=== PATIENT | male | born 1955 | race Caucasian/White ===

== ENCOUNTER 2020-06-20 09:09 | Inpatient (IN) ==
[2020-06-20 09:35] LABS: Basophils % 0.6 % (0.0-0.8); Eosinophils # 0.3 10*3/uL (0.0-0.87); Eosinophils % 5.2 % (0.00-10.9); Hematocrit 40.2 VOL% (42.0-52.0); Immature Granulocytes % 0.6 %; Immature Granulocytes Absolute 0.03 #; Lymphocytes # 1.8 10*3/uL (1.4-4.0); Lymphocytes % 36.9 % (21.2-54.2); Mean Corpuscular HGB Conc 34.8 GM/DL (32-36); Mean Platelet Volume 9.2 FL (9.6-12.0); Monocytes % 7.5 % (1.7-12.7); Neutrophils % 49.2 % (38.7-73.9); Platelet Count 234 T/CUMM (130-400); Red Blood Count 4.57 MC/CUMM (3.8-5.5); Red Cell Distribution Width 11.4 % (9.3-17.3); White Blood Count 4.8 T/CUMM (4-12)
[2020-06-20 09:52] LABS: Albumin 3.6 G/DL (3.4-5.0); Bilirubin,Total 1.5 MG/DL (0.2-1.0); Calcium 8.6 MG/DL (8.5-10.1); Osmolality,Calculated 274.1 MOS/KG (273-304); Total Protein 6.9 G/DL (6.4-8.3)
[2020-06-20] MEDS ORDERED: SODIUM CHLORIDE 0.9% 1,000 ML IV STA (09:53)
[2020-06-20] MEDS ORDERED: ACETAMINOPHEN 325 MG TABLET PO PRN (10:46)
[2020-06-20] MEDS ORDERED: ONDANSETRON 4 MG/2 ML VIAL IV PRN (10:46)
[2020-06-20] MEDS ORDERED: GLUCAGON 1 MG VIAL IM PRN ×2 (10:46→13:00)
[2020-06-20] MEDS ORDERED: DEXTROSE 50% 25 GM/50 ML VIAL IV PRN ×2 (10:46→13:00)
[2020-06-20] MEDS ORDERED: ALBUTEROL 2.5 MG/3 ML NEB RESP TX PRN (12:56)
[2020-06-20] MEDS: SODIUM CHLORIDE 0.9% 1,000 ML IV SCH (12:57)
[2020-06-20 13:22] LABS: Thyroid Stimulating Hormone 3.43 uIU/ml (0.358-3.74)
[2020-06-20] MEDS ORDERED: MAGNESIUM SULF RIDER 4 GM in PREMIX 1 EACH IV ONE (13:43)
[2020-06-20] MEDS ORDERED: INSULIN REGULAR 100 UNIT/ML SUBCUT SCH (16:30)
[2020-06-20] MEDS: INSULIN LISPRO 100 UNIT/ML SUBCUT SCH (17:00)
[2020-06-20] MEDS: DOCUSATE SODIUM 100 MG CAPSULE PO SCH (20:27)
[2020-06-20] MEDS: gemfibroziL 600 MG TABLET PO SCH (20:27)
[2020-06-20] MEDS: APIXABAN 5 MG TABLET PO SCH (20:27)
[2020-06-21] MEDS: SODIUM CHLORIDE 0.9% 1,000 ML IV SCH ×5 (00:01→18:01)
[2020-06-21] MEDS: PANTOPRAZOLE 40 MG TABLET PO SCH (05:48)
[2020-06-21 06:07] LABS: Basophils % 0.7 % (0.0-0.8); Eosinophils # 0.3 10*3/uL (0.0-0.87); Eosinophils % 5.7 % (0.00-10.9); Hematocrit 35.2 VOL% (42.0-52.0); Hemoglobin 12.2 GM/DL (14.0-18.0); Immature Granulocytes % 0.2 %; Immature Granulocytes Absolute 0.01 #; Lymphocytes # 1.6 10*3/uL (1.4-4.0); Mean Corpuscular HGB Conc 34.7 GM/DL (32-36); Mean Corpuscular Volume 87.8 FL (87-102); Mean Platelet Volume 9.2 FL (9.6-12.0); Monocytes % 7.2 % (1.7-12.7); Neutrophils % 50.2 % (38.7-73.9); Platelet Count 195 T/CUMM (130-400); Red Blood Count 4.01 MC/CUMM (3.8-5.5); Red Cell Distribution Width 11.5 % (9.3-17.3); White Blood Count 4.6 T/CUMM (4-12)
[2020-06-21 06:35] LABS: Calcium 8.1 MG/DL (8.5-10.1); Osmolality,Calculated 276.8 MOS/KG (273-304)
[2020-06-21] MEDS: INSULIN LISPRO 100 UNIT/ML SUBCUT SCH ×2 (07:25→16:19)
[2020-06-21] MEDS: CELECOXIB 200 MG CAPSULE PO SCH (08:12)
[2020-06-21] MEDS: DOCUSATE SODIUM 100 MG CAPSULE PO SCH ×2 (08:13→20:32)
[2020-06-21] MEDS: APIXABAN 5 MG TABLET PO SCH ×2 (08:13→20:32)
[2020-06-21] MEDS: ATORVASTATIN 20 MG TABLET PO SCH (08:13)
[2020-06-21] MEDS: gemfibroziL 600 MG TABLET PO SCH ×2 (08:13→20:31)
[2020-06-21] MEDS ORDERED: PANTOPRAZOLE 40 MG TABLET PO SCH (09:00)
[2020-06-21] MEDS ORDERED: MAGNESIUM SULF RIDER 4 GM in PREMIX 1 EACH IV PRN (09:08)
[2020-06-21] MEDS ORDERED: MAGNESIUM SULF RIDER 2 GM in PREMIX 1 EACH IV PRN (09:08)
[2020-06-21] MEDS: lisinopriL 5 MG TABLET PO SCH (09:15)
[2020-06-21] MEDS: MAGNESIUM CHLORIDE 64 MG TABLET PO SCH (20:32)
[2020-06-22] MEDS: SODIUM CHLORIDE 0.9% 1,000 ML IV SCH (04:04)
[2020-06-22 05:35] LABS: Basophils % 0.8 % (0.0-0.8); Eosinophils # 0.3 10*3/uL (0.0-0.87); Eosinophils % 6.7 % (0.00-10.9); Hematocrit 36.3 VOL% (42.0-52.0); Hemoglobin 12.6 GM/DL (14.0-18.0); Immature Granulocytes % 0.8 %; Immature Granulocytes Absolute 0.03 #; Lymphocytes # 1.5 10*3/uL (1.4-4.0); Lymphocytes % 38.6 % (21.2-54.2); Mean Corpuscular HGB Conc 34.7 GM/DL (32-36); Mean Corpuscular Volume 88.5 FL (87-102); Mean Platelet Volume 9.3 FL (9.6-12.0); Monocytes % 6.7 % (1.7-12.7); Neutrophils % 46.4 % (38.7-73.9); Platelet Count 216 T/CUMM (130-400); Red Cell Distribution Width 11.5 % (9.3-17.3); White Blood Count 3.9 T/CUMM (4-12)
[2020-06-22 05:46] LABS: Calcium 7.9 MG/DL (8.5-10.1); Osmolality,Calculated 280.4 MOS/KG (273-304)
[2020-06-22] MEDS: PANTOPRAZOLE 40 MG TABLET PO SCH (06:24)
[2020-06-22 08:04] VITALS: BP 168/94
[2020-06-22] MEDS: lisinopriL 5 MG TABLET PO SCH (09:25)
[2020-06-22] MEDS: CELECOXIB 200 MG CAPSULE PO SCH (09:25)
[2020-06-22] MEDS: ATORVASTATIN 20 MG TABLET PO SCH (09:25)
[2020-06-22] MEDS: MAGNESIUM CHLORIDE 64 MG TABLET PO SCH (09:25)
[2020-06-22] MEDS: gemfibroziL 600 MG TABLET PO SCH (09:25)
[2020-06-22] MEDS: APIXABAN 5 MG TABLET PO SCH (09:25)
[2020-06-22] MEDS: DOCUSATE SODIUM 100 MG CAPSULE PO SCH (09:26)
[2020-06-22] MEDS: INSULIN LISPRO 100 UNIT/ML SUBCUT SCH (09:27)
== END 2020-06-22 10:00 | disposition home or self-care (01) | DRG 641 ==
LOC: N.ED 09:09 → N.EDINP 09:09 → N.TELES 12:34
PROVIDERS: ADMIT Internal Medicine; ATTEND Internal Medicine

== ENCOUNTER 2022-05-29 14:37 | Inpatient (IN) ==
[2022-05-29 16:01] LABS: Basophils % 0.5 % (0.0-0.8); Eosinophils # 0.1 10*3/uL (0.0-0.87); Eosinophils % 1.4 % (0.00-10.9); Hematocrit 42.8 VOL% (42.0-52.0); Hemoglobin 14.6 GM/DL (14.0-18.0); Immature Granulocytes % 0.5 %; Immature Granulocytes Absolute 0.03 #; Lymphocytes # 1.1 10*3/uL (1.4-4.0); Lymphocytes % 16.9 % (21.2-54.2); Mean Corpuscular HGB Conc 34.1 GM/DL (32-36); Mean Corpuscular Volume 87.7 FL (87-102); Mean Platelet Volume 9.2 FL (9.6-12.0); Monocytes # 0.6 10*3/uL (0.11-0.8); Monocytes % 8.7 % (1.7-12.7); Platelet Count 243 T/CUMM (130-400); Red Blood Count 4.88 MC/CUMM (3.8-5.5); White Blood Count 6.3 T/CUMM (4-12)
[2022-05-29] MEDS ORDERED: ZOLPIDEM 5 MG TABLET PO PRN ×2 (16:03→16:04)
[2022-05-29] MEDS ORDERED: ONDANSETRON 4 MG/2 ML VIAL IV PRN (16:05)
[2022-05-29] MEDS ORDERED: MEPERIDINE 25 MG/1 ML VIAL IV PRN (16:07)
[2022-05-29] MEDS ORDERED: MEPERIDINE 50 MG/1 ML VIAL IV PRN (16:07)
[2022-05-29 16:18] LABS: Albumin 3.7 G/DL (3.4-5.0); Bilirubin,Total 0.7 MG/DL (0.20-1.00); Osmolality,Calculated 280.8 MOS/KG (273-304); Potassium 4.3 MMOL/L (3.5-5.1); Total Protein 7.2 G/DL (6.4-8.2)
[2022-05-29] MEDS: metFORMIN 500 MG TABLET PO SCH (16:56)
[2022-05-29] MEDS: carvediloL 12.5 MG TABLET PO SCH (16:56)
[2022-05-29] MEDS: gemfibroziL 600 MG TABLET PO SCH (16:56)
[2022-05-29] MEDS: LACTATED RINGERS 1,000 ML IV SCH (18:15)
[2022-05-29] MEDS ORDERED: DIAZEPAM 5 MG TABLET PO ONE (20:04)
[2022-05-29] MEDS ORDERED: FAMOTIDINE 20 MG TABLET PO ONE (20:04)
[2022-05-29] MEDS ORDERED: SCOPOLAMINE 1.5 MG PATCH TRANSDERM ONE (20:04)
[2022-05-29] MEDS: ATORVASTATIN 20 MG TABLET PO SCH (20:26)
[2022-05-29] MEDS ORDERED: LACTATED RINGERS 1,000 ML IV SCH (20:30)
[2022-05-29] MEDS: amLODIPine 10 MG TABLET PO SCH (20:36)
[2022-05-29] MEDS: lisinopriL 20 MG TABLET PO SCH (20:36)
[2022-05-29] MEDS ORDERED: sitaGLIPtin 100 MG TABLET PO SCH (21:00)
[2022-05-30 05:42] LABS: Basophils % 0.6 % (0.0-0.8); Eosinophils # 0.2 10*3/uL (0.0-0.87); Eosinophils % 3.7 % (0.00-10.9); Hematocrit 43.7 VOL% (42.0-52.0); Hemoglobin 14.3 GM/DL (14.0-18.0); Immature Granulocytes % 0.2 %; Immature Granulocytes Absolute 0.01 #; Lymphocytes # 1.4 10*3/uL (1.4-4.0); Lymphocytes % 27.4 % (21.2-54.2); Mean Corpuscular HGB Conc 32.7 GM/DL (32-36); Mean Corpuscular Volume 90.7 FL (87-102); Mean Platelet Volume 9.3 FL (9.6-12.0); Monocytes # 0.5 10*3/uL (0.11-0.8); Monocytes % 10.1 % (1.7-12.7); Platelet Count 228 T/CUMM (130-400); Red Blood Count 4.82 MC/CUMM (3.8-5.5); Red Cell Distribution Width 13.1 % (9.3-17.3); White Blood Count 4.9 T/CUMM (4-12)
[2022-05-30 05:56] LABS: Osmolality,Calculated 282.7 MOS/KG (273-304); Potassium 4.2 MMOL/L (3.5-5.1)
[2022-05-30] MEDS ORDERED: ceFAZolin 2,000 MG/50 ML DUPLEX IV ONE (06:00)
[2022-05-30] MEDS ORDERED: FAMOTIDINE 20 MG TABLET PO ONE (06:30)
[2022-05-30] MEDS ORDERED: DIAZEPAM 5 MG TABLET PO ONE (06:30)
[2022-05-30] MEDS ORDERED: SCOPOLAMINE 1.5 MG PATCH TRANSDERM ONE (06:30)
[2022-05-30] MEDS ORDERED: DEXAMETHASONE 4 MG/1 ML VIAL ONE ×2 (06:37→08:08)
[2022-05-30] MEDS ORDERED: ROPIVACAINE 0.5% 30 ML VIAL ONE (06:37)
[2022-05-30] MEDS ORDERED: LIDOCAINE 1% 5 ML VIAL ONE (06:37)
[2022-05-30] MEDS ORDERED: fentaNYL 100 MCG/2 ML VIAL ONE (06:38)
[2022-05-30] MEDS ORDERED: MIDAZOLAM 2 MG/2 ML VIAL ONE (06:38)
[2022-05-30] MEDS ORDERED: ROCURONIUM 50 MG/5 ML VIAL IV ONE (07:01)
[2022-05-30] MEDS ORDERED: diphenhydrAMINE CAP 25 MG CAPSULE PO PRN (07:01)
[2022-05-30] MEDS ORDERED: propofoL 200 MG/20 ML VIAL IV ONE (07:01)
[2022-05-30] MEDS ORDERED: SUCCINYLCHOLINE 200 MG/10 ML VIAL ONE (07:01)
[2022-05-30] MEDS ORDERED: ACETAMINOPHEN 325 MG TABLET PO PRN (07:01)
[2022-05-30] MEDS ORDERED: MAGNESIUM HYDROXIDE SUSP 30 ML UDCUP PO PRN (07:01)
[2022-05-30] MEDS ORDERED: LIDOCAINE 2% 5 ML VIAL ONE (07:01)
[2022-05-30] MEDS ORDERED: ePHEDrine 50 MG/ML VIAL ONE (07:47)
[2022-05-30] MEDS ORDERED: ACETAMINOPHEN INJ 1,000 MG/100 ML VIAL IV ONE (08:04)
[2022-05-30] MEDS ORDERED: KETOROLAC 30 MG/1 ML VIAL ONE (08:08)
[2022-05-30] MEDS ORDERED: NEOSTIGMINE 10 MG/10 ML VIAL ONE (08:10)
[2022-05-30] MEDS ORDERED: GLYCOPYRROLATE 0.4 MG/2 ML VIAL ONE (08:10)
[2022-05-30] MEDS ORDERED: gemfibroziL 600 MG TABLET PO SCH (09:00)
[2022-05-30] MEDS ORDERED: metFORMIN 500 MG TABLET PO SCH (09:00)
[2022-05-30] MEDS ORDERED: carvediloL 12.5 MG TABLET PO SCH (09:00)
[2022-05-30] MEDS ORDERED: LISINOPRIL 40 MG PO SCH (09:00)
[2022-05-30] MEDS ORDERED: CELECOXIB 200 MG CAPSULE PO SCH (09:00)
[2022-05-30] MEDS ORDERED: MONTELUKAST 10 MG TABLET PO SCH (09:00)
[2022-05-30] MEDS ORDERED: amLODIPine 10 MG TABLET PO SCH (09:00)
[2022-05-30] MEDS ORDERED: DAPAGLIFLOZIN 5 MG TABLET PO SCH (09:00)
[2022-05-30] MEDS ORDERED: ATORVASTATIN 20 MG TABLET PO SCH (09:00)
[2022-05-30] MEDS: LACTATED RINGERS 1,000 ML IV SCH ×2 (09:30→17:33)
[2022-05-30] MEDS ORDERED: GLUCAGON 1 MG VIAL IM PRN (10:01)
[2022-05-30] MEDS ORDERED: DEXTROSE 10% 250 ML BAG IV PRN (10:01)
[2022-05-30] MEDS: DAPAGLIFLOZIN 10 MG TABLET PO SCH (11:50)
[2022-05-30] MEDS: CELECOXIB 200 MG CAPSULE PO SCH (11:50)
[2022-05-30] MEDS: MONTELUKAST 10 MG TABLET PO SCH (11:51)
[2022-05-30] MEDS: lisinopriL 20 MG TABLET PO SCH ×2 (11:51→20:16)
[2022-05-30] MEDS: PANTOPRAZOLE 40 MG TABLET PO SCH (11:51)
[2022-05-30] MEDS: metFORMIN 500 MG TABLET PO SCH ×2 (11:51→16:52)
[2022-05-30] MEDS: gemfibroziL 600 MG TABLET PO SCH ×2 (12:06→16:52)
[2022-05-30] MEDS: carvediloL 12.5 MG TABLET PO SCH ×2 (12:06→16:52)
[2022-05-30] MEDS: ceFAZolin 2,000 MG/50 ML DUPLEX IV SCH ×2 (14:10→21:00)
[2022-05-30] MEDS: amLODIPine 10 MG TABLET PO SCH (19:20)
[2022-05-30] MEDS: ATORVASTATIN 20 MG TABLET PO SCH (20:15)
[2022-05-31] MEDS ORDERED: PANTOPRAZOLE 40 MG TABLET PO SCH (06:30)
[2022-05-31] MEDS: lisinopriL 20 MG TABLET PO SCH (08:38)
[2022-05-31] MEDS: gemfibroziL 600 MG TABLET PO SCH (08:38)
[2022-05-31] MEDS: DAPAGLIFLOZIN 10 MG TABLET PO SCH (08:38)
[2022-05-31] MEDS: metFORMIN 500 MG TABLET PO SCH (08:38)
[2022-05-31] MEDS: PANTOPRAZOLE 40 MG TABLET PO SCH (08:38)
[2022-05-31] MEDS: MONTELUKAST 10 MG TABLET PO SCH (08:39)
[2022-05-31] MEDS: carvediloL 12.5 MG TABLET PO SCH (08:46)
[2022-05-31] MEDS: CELECOXIB 200 MG CAPSULE PO SCH (08:49)
[2022-05-31] MEDS ORDERED: amLODIPine 10 MG TABLET PO SCH (09:00)
[2022-05-31] MEDS ORDERED: sitaGLIPtin 100 MG TABLET PO SCH (09:00)
[2022-05-31 11:43] VITALS: BP 122/65
== END 2022-05-31 14:58 | disposition home or self-care (01) | DRG 502 ==
LOC: N.OR 14:37 → N.3EOUT 14:37 → N.3E 14:38
PROVIDERS: ADMIT Orthopaedic Surgery; ATTEND Orthopaedic Surgery